=== PATIENT | female | born 1980 | race Caucasian/White ===

== ENCOUNTER 2019-03-21 05:35 | Day surgery (SDC) | payer OTHER ==
[~2019-03-21] VITALS: Ht 175.3 cm; Wt 83.5 kg
[~2019-03-21 05:35] MED LIST: ACETAMINOPHEN-1 EAC1 PO; MULTIVITAMINS1 EAC8 PO; ZYRTEC10 MG PO
[2019-03-21] MEDS ORDERED: NORCO 5-325 TA1 EACH PO (08:10)
[2019-03-21] MEDS ORDERED: TYLENOL325 M1 PO (08:11)
[2019-03-21] MEDS ORDERED: MOTRIN IB200 MG PO (08:11)
--- NOTE | 2019-03-21 08:11 | NUR ---
03/21/19 0811 Thea Blunt 0758 PT TO PACU SLEEPY BUT AROUSABLE WITH ORAL AIRWARY IN PLACE. O2 AT 10L VIA MASK.
--- NOTE | 2019-03-22 22:35 | OR ---
[facility] [address], [place] [address] Signed DATE OF OPERATION: 03/21/2019 SURGEON: Mercedes Holloway MD PREOPERATIVE DIAGNOSIS: Right inguinal soft tissue mass. POSTOPERATIVE DIAGNOSIS: Right inguinal subfascial soft tissue mass consistent with lipoma (7 cm). PROCEDURE: Excision of soft tissue mass, right groin (subfascial). ANESTHESIA: Local with monitored anesthesia care (Mercedes Mtz CRNA). Marcaine 0.25% with epinephrine. INDICATION: This 38-year-old white woman is a patient of Carl Duvall and is noted for quite some time a soft tissue mass in the right inguinal area. Imaging studies in 2017 including ultrasound and subsequent CT scan showed the lesion most likely to be a lipoma. Notably, it was not visualized well on the CT scan. She has had increasing symptoms of pain and increasing size of the lesion and wishes it to be excised. The risks of bleeding, infection, cosmetic deformity, and other unforeseen complications was reviewed with her; she understands and wished to proceed. FINDINGS: The lesion was beneath the Federico layer and was consistent with a well-demarcated lipoma approximately 7 cm in length. It was excised completely without problem. DESCRIPTION OF PROCEDURE: The patient was brought to the operating room, placed in supine position, given intravenous sedation by the physician office assistant. The lower abdomen was prepared with a chlorhexidine solution and draped sterilely. Preoperative antibiotic Ancef was given. Sequential compression device stockings used and heparin subcutaneously administered. The lesion was palpated and its extent marked and an incision was made along the line of skin tension directly over it. Dissection was carried through the dermis sharply. A small amount of subcutaneous tissue and Federico layer was encountered. Beneath this was the lipomatous lesion. This was with blunt and electrocautery dissection, excising it completely. Electrocautery was used for hemostasis. Additional Marcaine Electronically Signed By: MERCEDES HOLLOWAY MD 03/22/19 2235 PATIENT NAME: DICK GIVENS OPERATIVE REPORT DATE OF : 80 REPORT #: [id number] PHYSICIAN: MERCEDES HOLLOWAY MD PCP: VIVIANE BEDOYA MD REPORT IS CONFIDENTIAL AND NOT TO BE RELEASED WITHOUT AUTHORIZATION [facility] [address], [place] [address] Signed anesthetic was injected for postoperative analgesic benefit. The wound was closed with interrupted 3-0 Vicryl and a running subcutaneous subcuticular 3-0 Vicryl for the skin. Steri-Strips were applied as was a Mepilex silver sponge dressing and an OpSite. The patient tolerated the procedure well. BLOOD LOSS: Minimal. MD MARCI Lee/ISAIAS /[id number] cc: EDWIN Helm Copies: ~ Electronically Signed By: MERCEDES HOLLOWAY MD 03/22/19 2235 PATIENT NAME: DICK GIVENS OPERATIVE REPORT DATE OF : 80 REPORT #: [id number] PHYSICIAN: MERCEDES HOLLOWAY MD PCP: VIVIANE BEDOYA MD REPORT IS CONFIDENTIAL AND NOT TO BE RELEASED WITHOUT AUTHORIZATION
== END 2019-03-21 09:35 | disposition home or self-care (01) ==
LOC: DS 05:35 → OPS 05:35 → DS 06:45 → OPS 09:35
PROVIDERS: Surgery
PROC: 0JB80ZZ Excision of Abdomen Subcutaneous Tissue and Fascia, Open Approach (ICD-10-PCS; principal; 2019-03-21 06:45)
DX: M79.89 Other specified soft tissue disorders (principal); F41.9 Anxiety disorder, unspecified; Z79.899 Other long term (current) drug therapy
CPT/HCPCS: 00400; J0690; J1100; J1885; J2250; J2405; J2704; J2765; J3010; J7120